=== PATIENT | male | born 1950 | race Caucasian/White ===

== ENCOUNTER 2019-01-29 22:43 | Emergency (ER) | payer MEDICARE ==
[~2019-01-29] VITALS: Ht 188 cm; Wt 95.7 kg
[~2019-01-29 22:43] MED LIST: ATOR10 PO; BUDE6HFA INH; COLCHICINE0.6 MG PO; GLIP5ER PO; HYDCHL25 PO; Janumet 50-5001 EACH PO; LOSARTAN POTASS50 MG PO; METF500 PO; Pravachol40 MG PO; SILD25T PO; SITA100T2 PO; Ventolin/Prove6.7 GM INH; [UNRECOGNIZED DRUG - OTHER] PO
[2019-01-29 23:21] LABS: BASOPHILS ABSOLUTE AUTO 0.04 K/mm3 (0.00-0.23); BASOPHILS PERCENT AUTO 1 % (0-2); EOSINOPHILS ABSOLUTE AUTO 0.26 K/mm3 (0.00-0.68); EOSINOPHILS PERCENT AUTO 4 % (0-6); Hematocrit 36.6 % (37.0-53.0); Hemoglobin 11.7 g/dL (13.5-17.5); IMMATURE GRAN ABSOLUTE AUTO 0.02 K/mm3 (0.00-0.10); IMMATURE GRAN PERCENT AUTO 0 % (0-1); LYMPHOCYTES ABSOLUTE AUTO 1.85 K/mm3 (0.84-5.20); LYMPHOCYTES PERCENT AUTO 27 % (21-46); MONOCYTES PERCENT AUTO 10 % (4-13); Mean Corpuscular HGB 30.8 pg (26.0-34.0); Mean Corpuscular Volume 96 fL (80-100); Mean Platelet Volume 10.4 fL (9.1-12.4); NEUTROPHILS ABSOLUTE AUTO 4.07 K/mm3 (1.96-9.15); NEUTROPHILS PERCENT AUTO 59 % (41-73); Platelet Count 228 K/mm3 (150-400); RDW Coefficient Variation 13.5 % (11.7-14.2); RDW Standard Deviation 47.7 fL (35.1-46.3); White Blood Cell Count 6.94 K/mm3 (4.00-11.30)
[2019-01-29 23:41] LABS: Alanine Aminotransfer (ALT/SGP 43 U/L (12-78); Albumin, Blood 3.8 g/dL (3.4-5.0); Albumin/Globulin Ratio 1.4 (0.8-1.8); Alk Phos 42 U/L (50-136); Anion Gap 15 mmol/L (6-16); Aspartate Aminotrans (AST/SGOT 21 U/L (12-37); Bilirubin, Total 0.3 mg/dL (0.1-1.0); Blood Urea Nitrogen 15 mg/dL (8-24); Bun/Creatinine Ratio 10.6 (12.0-20.0); CO2, Blood 21 mmol/L (21-32); Calcium, Blood 8.5 mg/dL (8.5-10.1); Chloride, Blood 107 mmol/L (98-108); Creatinine, Blood 1.42 mg/dL (0.60-1.20); Ethanol (Alcohol), Blood, Med 55 mg/dL; Globulin, Blood 2.8 g/dL (2.2-4.0); Glomerular Filtration Rate 52 (60-); Glucose, Blood 129 mg/dL (70-99); Potassium, Blood 3.4 mmol/L (3.5-5.5); Sodium, Blood 143 mmol/L (136-145); Total Protein, Blood 6.6 g/dL (6.4-8.2); Troponin I <0.015 ng/mL (0.000-0.040)
== END 2019-01-30 01:05 | disposition home or self-care (01) ==
LOC: ER 22:43
PROVIDERS: Emergency Medicine
DX: I95.1 Orthostatic hypotension (principal); E86.0 Dehydration; E11.9 Type 2 diabetes mellitus without complications; I10 Essential (primary) hypertension; Z88.8 Allergy status to other drugs, medicaments and biological substances; Z79.899 Other long term (current) drug therapy; Z79.84 Long term (current) use of oral hypoglycemic drugs
CPT/HCPCS: 71046; 80053; 84484; 85025; 93005; 93010; 96360; 99285-25; G0480; J7030